=== PATIENT | female | born 1955 | race Caucasian/White ===

== ENCOUNTER 2017-04-03 07:48 | Day surgery (SDC) | payer MEDICAID ==
[2017-04-03 08:27] VITALS: BMI 33.6
[2017-04-03] MEDS ORDERED: Lactated Ringer's 500 ML IV SCH (09:45)
[2017-04-03] MEDS ORDERED: Propofol 10 mg/ml Inj (20 ML) ONE ×2 (09:50→10:26)
[2017-04-03] MEDS ORDERED: Midazolam 2 MG/2 ML VIAL ONE (09:50)
[2017-04-03 10:52] VITALS: TEMP 97
[2017-04-03 11:02] VITALS: O2SAT 100
[2017-04-03 11:20] VITALS: BP 100/66; RESP 10
[2017-04-03 11:21] VITALS: PULSE 70
== END 2017-04-03 12:10 | disposition home or self-care (01) ==
LOC: C.ENDO 07:48
PROVIDERS: ATTEND Internal Medicine Gastroenterology
DX: Z12.11 Encounter for screening for malignant neoplasm of colon (principal); D12.5 Benign neoplasm of sigmoid colon; D12.3 Benign neoplasm of transverse colon; K21.9 Gastro-esophageal reflux disease without esophagitis; K57.30 Diverticulosis of large intestine without perforation or abscess without bleeding; K64.1 Second degree hemorrhoids; K29.70 Gastritis, unspecified, without bleeding; K44.9 Diaphragmatic hernia without obstruction or gangrene; Z80.0 Family history of malignant neoplasm of digestive organs
CPT/HCPCS: 43239; 45384; 82948; 88305; J2250; J2704; J7120